=== PATIENT | female | born 1955 | race Hispanic/Latino ===

== ENCOUNTER 2017-09-09 00:51 | Emergency (ER) | payer OTHER ==
[~2017-09-09] VITALS: Ht 147.3 cm; Wt 66.4 kg
[2017-09-09 01:15] LABS: BASOPHILS % 0.3 % (0.0-1.0); EOSINOPHILS # (AUTO) 0.1 (0.0-0.4); EOSINOPHILS % 1.9 % (0.0-6.0); HEMATOCRIT 39.1 % (34.2-44.1); HEMOGLOBIN 13.7 g/dL (12.0-16.0); LYMPHOCYTES # (AUTO) 1.3 (1.0-3.2); LYMPHOCYTES % 19.1 % (18.0-39.1); MEAN CORPUSCULAR HEMOGLOBIN 30.6 pg (28-32); MEAN CORPUSCULAR VOLUME 87.5 fL (81-99); MONOCYTES # (AUTO) 0.5 (0.2-0.8); MONOCYTES % 7.7 % (4.4-11.3); NEUTROPHILS # (AUTO) 4.9 (2.1-6.9); NEUTROPHILS % 70.9 % (38.7-80.0); PLATELET COUNT 231 x10e3/uL (140-360); RED BLOOD COUNT 4.47 x10e6/uL (3.6-5.1); RED CELL DISTRIBUTION WIDTH 12.9 % (11.7-14.4)
[2017-09-09 01:20] LABS: BILIRUBIN,URINE NEGATIVE (NEGATIVE); CLARITY,URINE CLEAR (CLEAR); COLOR,URINE YELLOW (YELLOW); KETONES,URINE NEGATIVE (NEGATIVE); LEUKOCYTE ESTERASE ,URINE NEGATIVE (NEGATIVE); NITRITE,URINE NEGATIVE (NEGATIVE); PROTEIN,URINE DIPSTICK 1+ (NEGATIVE); URINE UROBILINOGEN 0.2 mg/dL (0.2 - 1)
[2017-09-09 01:23] LABS: CHLORIDE 105 mmol/L (98-107); POTASSIUM 3.6 mmol/L (3.5-5.1); SODIUM 139 mmol/L (136-145)
[2017-09-09 01:24] LABS: BACTERIA,URINE FEW /HPF; EPITHELIAL CELLS,URINE MANY /LPF; RBC,URINE 0-5 /HPF (0-5); WBC,URINE (MAN) 0-5 /HPF (0-5)
[2017-09-09] MEDS ORDERED: SODIUM CHLORIDE 0.9% 1000ML 1,000 ML IV STA (01:29)
[2017-09-09] MEDS ORDERED: MORPHINE SULFATE INJ 4 MG/ML INJ IV STA (01:29)
[2017-09-09] MEDS ORDERED: ONDANSETRON HCL INJ 2 MG/ML VIAL IV STA (01:29)
[2017-09-09] MEDS ORDERED: PANTOPRAZOLE 40 MG 10ML VIAL IV STA (01:29)
[2017-09-09 01:33] LABS: ALANINE AMINOTRANSFERASE 39 IU/L (0-55); ALBUMIN 4.1 g/dL (3.5-5.0); ALBUMIN/GLOBULIN RATIO 1.4 (0.8-2.0); ALKALINE PHOSPHATASE 110 IU/L (40-150); AMYLASE 46 U/L (25-125); ANION GAP 14.6 mmol/L (8-16); BLOOD UREA NITROGEN 12 mg/dL (7-26); BUN/CREATININE RATIO 18 (6-25); CALCIUM 9.4 mg/dL (8.4-10.2); CARBON DIOXIDE 23 mmol/L (22-29); CREATINE KINASE 30 IU/L (29-168); CREATININE, SERUM 0.67 mg/dL (0.57-1.11); EST GLOMERULAR FILTRATION RATE > 60 ML/MIN (60-); GLUCOSE 120 mg/dL (74-118); LIPASE 11 U/L (8-78)
--- NOTE | 2017-09-09 01:49 | Diagnostic Imaging Report ---
EXAMINATION: CHEST SINGLE (NOT PORTABLE) INDICATION: Chest pain COMPARISON: None FINDINGS: TUBES and LINES: None. LUNGS: Lungs are well inflated. Lungs are clear. There is no evidence of pneumonia or pulmonary edema. PLEURA: No pleural effusion or pneumothorax. HEART AND MEDIASTINUM: The cardiomediastinal silhouette is unremarkable. BONES AND SOFT TISSUES: No acute osseous lesion. Soft tissues are unremarkable. UPPER ABDOMEN: No free air under the diaphragm. IMPRESSION: No acute thoracic abnormality. Signed by: Dr. Solitario Oconnor M.D. on 09/09/2017 1:45 AM
--- NOTE | 2017-09-09 04:14 | Diagnostic Imaging Report ---
EXAM: CT Abdomen and Pelvis WITHOUT contrast INDICATION: Abdominal pain. COMPARISON: None. TECHNIQUE: Abdomen and pelvis were scanned utilizing a multidetector helical scanner from the lung base to the pubic symphysis without administration of IV contrast. Absence of intravenous contrast decreases sensitivity for detection of focal lesions and vascular pathology. Coronal and sagittal reformations were obtained. Routine protocol was performed. IV CONTRAST: None. ORAL CONTRAST: Water RADIATION DOSE: Total DLP: 492.71 mGy*cm Estimated effective dose: (DLP x 0.015 x size factor) mSv COMPLICATIONS: None FINDINGS: LINES and TUBES: None. LOWER THORAX: Unremarkable HEPATOBILIARY: No focal hepatic lesions. No biliary ductal dilation. GALLBLADDER: There are cholecystectomy clips. SPLEEN: No splenomegaly. PANCREAS: No focal masses or ductal dilatation. ADRENALS: No adrenal nodules KIDNEYS/URETERS: No hydronephrosis. No cystic or solid mass lesions. No stones. GI TRACT: No abnormal distention, wall thickening, or evidence of bowel obstruction. There are diverticula within the colon without evidence of diverticulitis. Appendix is normal. PELVIC ORGANS/BLADDER: Unremarkable. LYMPH NODES: No lymphadenopathy. VESSELS: Unremarkable. PERITONEUM / RETROPERITONEUM: No free air or fluid. BONES: Bilateral L5 pars defect with grade 2 anterolisthesis of L5 on S1 SOFT TISSUES: Unremarkable. IMPRESSION: 1. No evidence of acute intra-abdominal or pelvic abnormality. Signed by: Dr. Solitario Oconnor M.D. on 09/09/2017 4:07 AM
== END 2017-09-09 04:56 | disposition home or self-care (01) ==
LOC: ER 00:51
DX: R10.13 Epigastric pain (principal); K29.00 Acute gastritis without bleeding
CPT/HCPCS: 36415; 71045; 74176; 80053; 81001; 82150; 82550; 82553; 83690; 84484; 85025; 93005; 99284; J2270; J2405; J7030

== ENCOUNTER → 2019-01-09 | Day surgery (SDC) | payer OTHER ==
[~2019-01-09] MED LIST: BENICAR20 MG PO; BUPIVACAINE HCL 0.5% INJ 30 ML VIAL INJ ONE; CEFAZOLIN SOD 1 GM/NS 50ML 50 ML IV ONE; DEXAMETHASONE SOD PHOS 10 MG/1 ML VIAL ONE; DEXAMETHASONE SOD PHOS INJ 4 MG/ML VIAL ONE; FENTANYL CITRATE/PF 100MCG/2 ML INJ ONE; HYDROMORPHONE 1MG/1ML INJ ONE; KETOROLAC TROMETHAMINE 30 MG/ML VIAL ONE; LIDOCAINE HCL 2% LOCAL INJ 5 ML SDV VIAL INJ ONE; METFORMIN HCL500 MG PO; MIDAZOLAM HCL 2 MG/2 ML VIAL ONE; ONDANSETRON HCL INJ 2MG/ML 2ML 2 MG/ML VIAL ONE; PHENTERMINE HCL30 MG PO; PRAVASTATIN SOD40 MG PO; PROLIA60 MG/1 ML INJ; PROPOFOL IV EMULSION 10 MG/ML 20 ML VIAL ONE; SEVOFLURANE INHAL SOLN 250 ML PEN BTL ONE; TRULICITY1.5 MG/0.5 INJ; VIT B2 PO
--- OUTSIDE RECORDS SUMMARY | 2019-01-09 05:20 | XMS REPORT ---
Author Author [facility] Address Unknown Phone Unavailable Care Team Providers Care Regional Director Of Finance Name Role Phone Christina TAMEZ Unavailable Unavailable Problems This patient has no known problems. Allergies, Adverse Reactions, Alerts This patient has no known allergies or adverse reactions. Medications This patient has no known medications. Results Test Description Test Time Test Comments Text Results Atomic Results Result Comments SCR MAMM BILATERAL TALIA CAD DIGITAL 2018-09-08 11:16:54 - SCR MAMM BILATERAL TALIA CAD DIGITALBILATERAL DIGITAL SCREENING MAMMOGRAM 3D/2D WITH CAD: 09/08/2018CLINICAL: Asymptomatic. Digital breast tomosynthesis was performed in addition to routine CC and MLO views. Current mammographic images were evaluated by either a [facility] M-Vu or a [employer] ImageChecker CAD (computer aided detection system). Comparison is made to exams dated 09/05/2017 mammogram, 07/10 mammogram, and 07/20/2015 mammogram - [facility]. The tissue of both breasts is predominantly fatty. There are benign vascular calcifications and calcifications in both breasts. No suspicious mass, architectural distortion, malignant type calcification, or lymph node abnormality detected. Breast architecture is stable compared to prior exams.IMPRESSION: BENIGNThere is no mammographic evidence of malignancy. Resume annual screening mammography in one year. Adarsh Walker M.D. ss/penrad:09/08/2018 11:16:54 copy to: Ame Benson M.D., ph: [phone], fax: [phone] to: Som Garcia M.D., ph: [phone], fax: [phone] Technologist: Cheryl EASLEY, [facility]- FWletter sent: BIRADS 1-2 Normal Mammogram BI-RADS: 2 Benign SCR MAMM BILATERAL TALIA CAD DIGITAL 2018-09-08 11:16:54 - SCR MAMM BILATERAL TALIA CAD DIGITALBILATERAL DIGITAL SCREENING MAMMOGRAM 3D/2D WITH CAD: 09/08/2018CLINICAL: Asymptomatic. Digital breast tomosynthesis was performed in addition to routine CC and MLO views. Current mammographic images were evaluated by either a [facility] M-Vu or a [employer] ImageChecker CAD (computer aided detection system). Comparison is made to exams dated 09/05/2017 mammogram, 07/10 mammogram, and 07/20/2015 mammogram - [facility]-. The tissue of both breasts is predominantly fatty. There are benign vascular calcifications and calcifications in both breasts. No suspicious mass, architectural distortion, malignant type calcification, or lymph node abnormality detected. Breast architecture is stable compared to prior exams.IMPRESSION: BENIGNThere is no mammographic evidence of malignancy. Resume annual screening mammography in one year. Adarsh Walker M.D. ss/penrad:09/08/2018 11:16:54 copy to: Ame Benson M.D., ph: [phone], fax: [phone] to: Som Garcia M.D., ph: [phone], fax: [phone] Technologist: Cheryl EASLEY, [facility]- FWletter sent: BIRADS 1-2 Normal Mammogram BI-RADS: [address] ABDOMEN/PELVIS WO 2017-09-09 04:05:00 [place] [address] Patient Name: SHAWANDA MYERS MR #: [id number] : 1955 Age/Sex: 62/F Req #: [id number] Adm Physician: Ordered by: CINDI TAMEZ MD Report #: [id number] Location: Room/Bed: Procedure: [id number] CT/CT ABDOMEN/PELVIS WO Exam Date: 09/09/17 Exam Time: 0301 REPORT STATUS: Signed EXAM: CT Abdomen and Pelvis WITHOUT contrast INDICATION: Abdominal pain. COMPARISON: None. TECHNIQUE: Abdomen and pelvis were scanned utilizing a multidetector helical scanner from the lung base to the pubic symphysis without administration of IV contrast. Absence of intravenous contrast decreases sensitivity for detection of focal lesions and vascular pathology. Coronal and sagittal reformations were obtained. Routine protocol was performed. IV CONTRAST: None. ORAL CONTRAST: Water RADIATION DOSE: Total DLP: 492.71 mGy*cm Estimated effective dose: (DLP x 0.015 x size factor) mSv COMPLICATIONS: None FINDINGS: LINES and TUBES: None. LOWER THORAX: Unremarkable HEPATOBILIARY: No focal hepatic lesions. No biliary ductal dilation. GALLBLADDER: There are cholecystectomy clips. SPLEEN: No splenomegaly. PANCREAS: No focal masses or ductal dilatation. ADRENALS: No adrenal nodules KIDNEYS/URETERS: No hydronephrosis. No cystic or solid mass lesions. No stones. GI TRACT: No abnormal distention, wall thickening, or evidence of bowel obstruction. There are diverticula within the colon without evidence of diverticulitis. Appendix is normal. PELVIC ORGANS/BLADDER: Unremarkable. LYMPH NODES: No lymphadenopathy. VESSELS: Unremarkable. PERITONEUM / RETROPERITONEUM: No free air or fluid. BONES: Bilateral L5 pars defect with grade 2 anterolisthesis of L5 on S1 SOFT TISSUES: Unremarkable. IMPRESSION: 1. No evidence of acute intra-abdominal or pelvic abnormality. Signed by: Dr. Solitario Oconnor M.D. on 09/09/2017 4:07 AM Dictated By: SOLITARIO FARR MD 6 Transcribed By: KEY on 09/09/17406 COPY TO: CINDI TAMEZ MD CHEST SINGLE (NOT PORTABLE) 2017-09-09 01:45:00 [place] [address] Patient Name: SHAWANDA MYERS MR #: [id number] : 1955 Age/Sex: 62/F Req #: [id number] [facility] Physician: Ordered by: CINDI TAMEZ MD Report #: [id number] Location: ER Room/Bed: Procedure: [id number] DX/CHEST SINGLE (NOT PORTABLE) Exam Date: 09/09/17 Exam Time: 0115 REPORT STATUS: Signed EXAMINATION: CHEST SINGLE (NOT PORTABLE) INDICATION: Chest pain COMPARISON: None FINDINGS: TUBES and LINES: None. LUNGS: Lungs are well inflated. Lungs are clear. There is no evidence of pneumonia or pulmonary edema. PLEURA: No pleural effusion or pneumothorax. HEART AND MEDIASTINUM: The cardiomediastinal silhouette is unremarkable. BONES AND SOFT TISSUES: No acute osseous lesion. Soft tissues are unremarkable. UPPER ABDOMEN: No free air under the diaphragm. IMPRESSION: No acute thoracic abnormality. Signed by: Dr. Solitario Oconnor M.D. on 09/09/2017 1:45 AM Dictated By: SOLITARIO DEL ANGEL MD 4 Transcribed By: KEY on 09/09/17144 COPY TO: CINDI TAMEZ MD
[2019-01-09 09:55] VITALS: BP 110/67
--- NOTE | 2019-01-09 12:03 | Operative Report ---
DATE OF PROCEDURE: 01/09/2019 SURGEON: Omar eRa DPM PREOPERATIVE DIAGNOSES: 1. Left first metatarsal cuneiform exostosis. 2. Left third and fourth digit hammertoe. PLANNED PROCEDURE: 1. Left first metatarsal cuneiform exostectomy. 2. Left third and fourth digit arthroplasty. SURGEON: Christina Drummond DPM (Char[place]) PASSPORT SUPPORT ASSOCIATE: Omar Rea DPM ANESTHESIA: General with a postoperative block consisting of 15 mL 0.5% Marcaine plain. HEMOSTASIS: Pneumatic thigh tourniquet set at 350 mmHg for a total time of approximately 30 minutes. MATERIALS: 2-0 Vicryl, 3-0 Vicryl, 4-0 nylon, 0.045 K-wires. ESTIMATED BLOOD LOSS: Less than 10 mL. PROCEDURE NOTE: The patient was seen in the preoperative waiting room. The correct procedure and site were identified. The patient was brought to the operating room and placed on the operating table in supine position. General anesthesia was initiated. At this time, a well-padded pneumatic tourniquet was placed about the patient's left thigh. The left foot, ankle, and leg was then scrubbed, prepped, and draped in the usual aseptic manner. The left foot, ankle, and leg was exsanguinated with an Esmarch bandage and the pneumatic thigh tourniquet was inflated to 350 mmHg for a total time of approximately 30 minutes. Attention was directed to the dorsomedial aspect of the patient's left foot, where a large bony prominence was noted to the first metatarsal cuneiform joint. A 4 cm linear incision made directly over the exostosis. The incision was carried through subcutaneous tissue them from deep or underlying structures. All vital neurovascular structures were identified, retracted medially and laterally and all bleeders were cauterized or ligated as deemed necessary. At this time, the exostosis was easily identified. Utilizing osteotome and mallet, the majority exostosis was removed and passed off to the back table. Utilizing a rongeur and a rotary bur, the exostosis was smoothed to anatomic alignment. The wound was then copiously irrigated with sterile saline. Deep tissues were reapproximated with 2-0 Vicryl and the skin was closed using a running interlocking stitch of 4-0 nylon. Attention was then directed to the left second digit where an incision was made extending from the proximal interphalangeal joint to the level of the metatarsophalangeal joint. There was noted to be severe transverse plane deformity well, loaded with the digit deviating laterally. The incision was carried down to the level of the metatarsophalangeal joint where a tenotomy and capsulotomy were performed. Utilizing a McGlamry elevator, the joint was freed of all capsular ligamentous attachments. Next, attention was directed to the proximal interphalangeal joint where a significantly arthritic joint was noted and a sagittal saw was used to open the joint. Next, utilizing a 0.045 K-wire, it was drilled into the middle and distal phalanx, back to the proximal phalanx, into the metatarsal head and noted to be reduced with intraoperative fluoroscopy. Next, utilizing 2-0 Vicryl, the medial capsule was reapproximated well, leaving the lateral capsule open to allow to correct for transverse plane deformity. The wound was then copiously irrigated with sterile saline. Capsule and deep tissue were reapproximated with 3-0 Vicryl, subcutaneous tissue with 3-0 Vicryl, and the skin was closed using simple interrupted sutures with 4-0 nylon. The same exact procedure was performed to the left fourth digit with no additions, modifications, or subtractions and an excellent result was achieved. Again, findings were confirmed via intraoperative fluoroscopy. The incision site was then dressed with Adaptic, 4x4s, Kerlix. K-wires were bent, cut, and capped appropriately. The patient tolerated the procedure and anesthesia well. The patient was transferred to postoperative recovery with vital signs stable and vascular status intact. The patient was monitored for short period time before being sent home with the following written and oral instructions. 1. Keep the dressing clean, dry, intact. 2. The patient is to remain partial weightbearing in a postop shoe to avoid excess ambulation until being seen in the office. 3. The patient is given office number should contact us if any problems arise. RAYNA Cohen/CARLOS /[phone]
== END | disposition home or self-care (01) ==
LOC: OR 05:14
PROVIDERS: ATTEND Podiatrist Foot & Ankle Surgery
DX: M77.52 Other enthesopathy of left foot and ankle (principal); M20.42 Other hammer toe(s) (acquired), left foot; I10 Essential (primary) hypertension; E11.9 Type 2 diabetes mellitus without complications; K21.9 Gastro-esophageal reflux disease without esophagitis; Z01.810 Encounter for preprocedural cardiovascular examination; Z79.84 Long term (current) use of oral hypoglycemic drugs
CPT/HCPCS: 28104; 28270 ×2; 28285 ×2; 36415; 82948; 93005; C1713; J0690; J1100; J1170; J1885; J2001; J2250; J2405; J2704; J3010

== ENCOUNTER → 2019-01-29 | Outpatient (CLI) | payer OTHER ==
[~2019-01-29] MED LIST changes: -BUPIVACAINE HCL 0.5% INJ 30 ML VIAL INJ ONE; -CEFAZOLIN SOD 1 GM/NS 50ML 50 ML IV ONE; -DEXAMETHASONE SOD PHOS 10 MG/1 ML VIAL ONE; -DEXAMETHASONE SOD PHOS INJ 4 MG/ML VIAL ONE; -FENTANYL CITRATE/PF 100MCG/2 ML INJ ONE; -HYDROMORPHONE 1MG/1ML INJ ONE; -KETOROLAC TROMETHAMINE 30 MG/ML VIAL ONE; -LIDOCAINE HCL 2% LOCAL INJ 5 ML SDV VIAL INJ ONE; -MIDAZOLAM HCL 2 MG/2 ML VIAL ONE; -ONDANSETRON HCL INJ 2MG/ML 2ML 2 MG/ML VIAL ONE; -PROPOFOL IV EMULSION 10 MG/ML 20 ML VIAL ONE; -SEVOFLURANE INHAL SOLN 250 ML PEN BTL ONE
== END ==
LOC: WCC 14:01
PROVIDERS: ATTEND Family Medicine Adult Medicine
DX: E11.621 Type 2 diabetes mellitus with foot ulcer (principal); M81.8 Other osteoporosis without current pathological fracture; M96.89 Other intraoperative and postprocedural complications and disorders of the musculoskeletal system; R60.0 Localized edema; I10 Essential (primary) hypertension; I99.8 Other disorder of circulatory system; K21.9 Gastro-esophageal reflux disease without esophagitis
CPT/HCPCS: 36415; 82948

== ENCOUNTER → 2020-11-29 | Outpatient (CLI) | payer OTHER | LOC: CT 12:06 | PROVIDERS: ATTEND Podiatrist Foot & Ankle Surgery | DX: M19.071 Primary osteoarthritis, right ankle and foot (principal) ==

== ENCOUNTER → 2022-08-11 | Day surgery (SDC) | payer MEDICARE ==
[2022-08-07 09:26] LABS: BASOPHILS % 0.7 % (0.0-1.0); EOSINOPHILS # (AUTO) 0.2 (0.0-0.4); EOSINOPHILS % 3.5 % (0.0-6.0); HEMATOCRIT 36.8 % (34.2-44.1); HEMOGLOBIN 12.2 g/dL (12.0-16.0); LYMPHOCYTES # (AUTO) 2.4 (1.0-3.2); LYMPHOCYTES % 39.7 % (18.0-39.1); MEAN CORPUSCULAR HEMOGLOBIN 30.7 pg (28-32); MEAN CORPUSCULAR HGB CONC 33.2 g/dL (31-35); MEAN CORPUSCULAR VOLUME 92.5 fL (81-99); MONOCYTES # (AUTO) 0.5 (0.2-0.8); MONOCYTES % 7.9 % (4.4-11.3); NEUTROPHILS # (AUTO) 2.8 (2.1-6.9); NEUTROPHILS % 47.9 % (38.7-80.0); PLATELET COUNT 224 x10e3/uL (140-360); RED BLOOD COUNT 3.98 x10e6/uL (3.6-5.1); RED CELL DISTRIBUTION WIDTH 13.2 % (11.7-14.4)
[~2022-08-11] MED LIST changes: +CRESTOR10 MG PO; +GAS-X125 MG PO; +LACTATED RINGER'S 1,000 ML ONE; +LIDOCAINE HCL 2% LOCAL INJ 5 ML SDV VIAL INJ ONE; +LINZESS290 MCG PO; +MIDAZOLAM HCL 2 MG/2 ML VIAL ONE; +MILK OF MA2400 MG/10 PO; +OMEPRAZOLE40 MG PO; +OZEMPIC0.25 MG/0. SC; +PROPOFOL IV EMULSION 10 MG/ML 20 ML VIAL ONE; +TOUJEO MAX300 UNIT/1 SC; +[UNRECOGNIZED DRUG - OTHER] PO
[2022-08-11 08:55] VITALS: BP 123/83; PULSE 67; RESP 14; O2SAT 100
== END | disposition home or self-care (01) ==
LOC: OR 06:40
PROVIDERS: ATTEND Internal Medicine Gastroenterology
DX: R13.10 Dysphagia, unspecified (principal); K31.7 Polyp of stomach and duodenum; K29.50 Unspecified chronic gastritis without bleeding; K31.89 Other diseases of stomach and duodenum; K44.9 Diaphragmatic hernia without obstruction or gangrene; K21.9 Gastro-esophageal reflux disease without esophagitis; K58.9 Irritable bowel syndrome, unspecified; K59.00 Constipation, unspecified; R63.4 Abnormal weight loss; R74.8 Abnormal levels of other serum enzymes; R93.89 Abnormal findings on diagnostic imaging of other specified body structures; E11.9 Type 2 diabetes mellitus without complications; I10 Essential (primary) hypertension; E78.5 Hyperlipidemia, unspecified; F32.A Depression, unspecified; Z01.810 Encounter for preprocedural cardiovascular examination; Z01.812 Encounter for preprocedural laboratory examination; Z79.84 Long term (current) use of oral hypoglycemic drugs; Z79.4 Long term (current) use of insulin; Z79.85 Long-term (current) use of injectable non-insulin antidiabetic drugs; Z79.899 Other long term (current) drug therapy; Z86.16 Personal history of COVID-19
CPT/HCPCS: 36415 ×2; 43239; 82948; 85025; 88112; 88305; 88312; 88342; 93005; J2001; J2250; J2704; J7121; 88300